=== PATIENT | male | born 1990 | race Two or more races ===

== ENCOUNTER 2017-01-09 11:13 | Emergency (ER) | payer BC ==
[~2017-01-09] VITALS: Ht 172.7 cm; Wt 74.8 kg
[~2017-01-09 11:13] MED LIST: ATIVAN1 MG ORAL; IBUPROFEN600 MG ORAL; IBUPROFEN800 MG ORAL; NKM; NORCO 5-325 TA1 EACH ORAL
[2017-01-09 11:54] VITALS: BP 128/66
[2017-01-09 12:00] VITALS: BP 129/71
[2017-01-09] MEDS ORDERED: LR 1000ml 1,000 ML IV STA (12:41)
[2017-01-09 12:45] LABS: APPEARANCE,URINE CLEAR; KETONES,URINE NEGATIVE (NEGATIVE); LEUKOCYTE ESTERASE ,URINE NEGATIVE (NEGATIVE); NITRITE,URINE NEGATIVE (NEGATIVE); PH,URINE 8 (4.5-8.0); PROTEIN,URINE NEGATIVE (NEGATIVE); UROBILINOGEN,URINE NORMAL MG/DL (0.0-1.0)
[2017-01-09] MEDS ORDERED: Famotidine 20 MG/ 2ML VIAL IVP ONE (12:45)
[2017-01-09 13:00] VITALS: BP 118/78
[2017-01-09 13:16] LABS: BASOPHILS % (AUTO) 1.1 % (0.0-2.0); EOSINOPHILS % (AUTO) 2.6 % (0.0-3.0); LYMPHOCYTES % (AUTO) 26.1 % (20.0-45.0); MEAN CORPUSCULAR HEMOGLOBIN 31.6 PG (27.0-31.0); MEAN CORPUSCULAR HGB CONC 33.5 G/DL (32.0-36.0); MEAN CORPUSCULAR VOLUME 95 FL (80-99); MEAN PLATELET VOLUME 6.8 FL (6.5-10.1); MONOCYTES % (AUTO) 6.4 % (1.0-10.0); NEUTROPHILS % (AUTO) 63.8 % (45.0-75.0); PLATELET COUNT 288 K/UL (150-450); RED CELL DISTRIBUTION WIDTH 12.7 % (11.6-14.8); WHITE BLOOD COUNT 7.7 K/UL (4.8-10.8)
[2017-01-09 13:21] LABS: ALANINE AMINOTRANSFERASE 31 U/L (3-41); ALBUMIN/GLOBULIN RATIO 1.4 (1.0-2.7); ANION GAP 14 (5-15); ASPARTATE AMINO TRANSFERASE 18 U/L (5-40); CARBON DIOXIDE 28 mEQ/L (20-30); CHLORIDE 100 mEQ/L (98-107); GLOMERULAR FILTRATION RATE > 60 mL/min (>60); HEMOLYSIS 12; LIPASE 20 U/L (< 60); POTASSIUM 4.1 mEQ/L (3.4-4.9); SODIUM 142 mEQ/L (135-145); TOTAL PROTEIN 7.4 g/dL (6.6-8.7)
[2017-01-09] MEDS ORDERED: ATIVAN0.5 MG ORAL (14:03)
[2017-01-09] MEDS ORDERED: PEPCID20 MG ORAL (14:03)
[2017-01-09] MEDS ORDERED: ZOFRAN ODT4 MG ORAL (14:03)
[2017-01-09 14:08] VITALS: BP 118/78
[2017-01-09 14:09] VITALS: BP 118/78
--- NOTE | 2017-01-09 15:30 | Diagnostic Imaging Report ---
Indication: Chest pain Technique: One view of the chest Comparison: none Findings: Lungs and pleural spaces are clear. Heart size is normal. Inspiration is less optimal than on the prior study Impression: No acute process
--- NOTE | 2017-01-10 17:06 | Emergency Room Report ---
History of Present Illness General Chief Complaint: Abdominal Pain Source: Patient Present Illness HPI 26YOM with generalized abd pain, nausea without vomiting or diarrhea. Also associated with SOB but no chest pain, fever/chills, cough. 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 Denies history of anxiety. Denies smoking, asthma. Denies other medical problems. Allergies: Coded Allergies: SHELLFISH DERIVED (Unverified Allergy, Unknown, 01/09/17) Shrimp (Verified Allergy, Unknown, 01/09/17) Uncoded Allergies: SHELLFISH (Allergy, Unknown, 01/09/17) Patient History Past Medical History: none Past Surgical History: none Pertinent Family History: none Social History: Denies: alcohol use, drug use, smoking Immunizations: UTD Reviewed Nursing Documentation: PMH: Agreed, PSxH: Agreed Nursing Documentation-PMH Past Medical History: No Stated History Review of Systems All Other Systems: negative except mentioned in HPI Physical Exam Vital Signs Date Time Temp Pulse Resp B/P Pulse Ox O2 Delivery O2 Flow Rate FiO2 01/09/17 11:33 98.2 84 16 128/66 100 Room Air Sp02 EP Interpretation: reviewed, normal General Appearance: normal inspection, well appearing, no apparent distress, alert, GCS 15, non-toxic, other - Very anxious appearing,stressed Head: normocephalic, atraumatic Eyes: bilateral eye EOMI, bilateral eye PERRL ENT: normal ENT inspection, hearing grossly normal, normal voice Neck: normal inspection, full range of motion, supple, no bony tend Respiratory: normal inspection, lungs clear, normal breath sounds, no respiratory distress, no retraction, no wheezing Cardiovascular #1: regular rate, rhythm, no edema Gastrointestinal: normal inspection, normal bowel sounds, non tender, soft, no guarding, no hernia Genitourinary: no CVA tenderness Neurologic: normal inspection, alert, oriented x3, responsive, 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 Likely hemoconcentrated. No leuks. Lipase and bili normal. Patient feels much better. Patient was hydrated with IVF Tolerating PO Exam continues to be non-focal on serial exam of abdomen Likely viral gastroenteritis Low suspicion for acute bacterial or surgical process at this time Rx Pepcid, Zofran Rx ativan for anxiety Advised BRAT diet, fluids and PMD followup Understands to Return to ER for worsening, focal abd pain, fever/chills or inability to tolerate PO Last Vital Signs Date Time Temp Pulse Resp B/P Pulse Ox O2 Delivery O2 Flow Rate FiO2 01/09/17 14:09 98.2 88 18 118/78 100 Room Air Status: improved Disposition: HOME, SELF-CARE Condition: Stable Scripts Ondansetron Odt* (ZOFRAN ODT*) 4 Mg Tab.rapdis 4 MG ORAL BID Y for Nausea & Vomiting for 7 Days, #14 TAB 0 Refills Prov: STEPHANIE NAVARRETE M.D. 01/09/17 Famotidine (PEPCID) 20 Mg Tablet 20 MG ORAL BID for 7 Days, #14 TAB 0 Refills Prov: STEPHANIE NAVARRETE M.D. 01/09/17 Lorazepam* (ATIVAN*) 0.5 Mg Tablet 0.5 MG ORAL BEDTIME for anxiety for 5 Days, #5 TAB Prov: STEPHANIE NAVARRETE M.D. 01/09/17 Patient Instructions: Panic Attacks, [id number]-[id number], Viral Gastroenteritis, Adult Additional Instructions: - Take zofran as needed for nausea - BRAT diet - bananas/rice/apple sauce/toast - progress diet slowly - Drink plenty of liquids - Take pepcid twice daily for 1 week - Return to ER for worsening abdominal pain to one particular area of your abdomen, fever/chills, inability to keep water down Take ativan 0.5mg one tablet at night as needed for severe anxiety Follow up with your primary care doctor in 1 week STEPHANIE NAVARRETE M.D. Jan 10, 2017 17:06
== END 2017-01-09 14:25 | disposition home or self-care (01) ==
LOC: EMR 12:10
DX: K52.9 Noninfective gastroenteritis and colitis, unspecified (principal); F41.9 Anxiety disorder, unspecified; Z91.013 Allergy to seafood
CPT/HCPCS: 36415; 71010; 80053; 81003; 83690; 85025; 96360; 96374; 96375; 99284; J2405; J7120; S0028

== ENCOUNTER → 2017-04-22 | Outpatient (CLI) | payer BC ==
[~2017-04-22] MED LIST changes: +ATIVAN0.5 MG ORAL; +FLORAJEN460 MG PO; +PEPCID20 MG ORAL; +ZOFRAN ODT4 MG ORAL
--- NOTE | 2017-04-22 15:45 | GI Initial Consult Note ---
History of Present Illness General Date patient seen: Apr 22, 2017 Time patient seen: 14:00 Referring physician: Dr. Linda Reason for Consultation: BELCHING NON-STOP Present Illness HPI 27 year old male patient referred by Dr. Dr. Linda for evaluation of non stop belching. Per patient, he has history of GERD, esophagitis, and SIBO s/p Xifaxan tx. The patient has also had a barium swallow study performed in which he states it has come back unremarkable. No history of endoscopic procedures. Presents today with the following symptoms; discomfort in the stomach, difficulty or painful swallowing, bloating/belching, and occasional loose bowel movements. Home Meds Active Scripts Ondansetron Odt* (ZOFRAN ODT*) 4 Mg Tab.rapdis, 4 MG ORAL BID Y for Nausea & Vomiting for 7 Days, #14 TAB 0 Refills Prov:STEPHANIE NAVARRETE M.D. 01/09/17 Famotidine (PEPCID) 20 Mg Tablet, 20 MG ORAL BID for 7 Days, #14 TAB 0 Refills Prov:STEPHANIE NAVARRETE M.D. 01/09/17 Lorazepam* (ATIVAN*) 0.5 Mg Tablet, 0.5 MG ORAL BEDTIME for anxiety for 5 Days, #5 TAB Prov:STEPHANIE NAVARRETE M.D. 01/09/17 Reported Medications Lactobacillus Acidophilus (FLORAJEN) 460 Mg Capsule, 460 MG PO, CAP 04/22/17 No Known Medications* (NKM - No Known Medications*) ., 0 ., 0 Refills 05/30/13 Med list reviewed/reconciled: Yes Allergies: Coded Allergies: SHELLFISH DERIVED (Unverified Allergy, Unknown, 01/09/17) Shrimp (Verified Allergy, Unknown, 01/09/17) Uncoded Allergies: SHELLFISH (Allergy, Unknown, 01/09/17) Patient History History Provided By: Patient, Medical Record PM Narrative Esophagitis GERD SIBO belching Past Surgical History: none Pertinent Family History: none Family History Narrative none Social History: Denies: alcohol use, drug use, other, smoking Review of Systems All Other Systems: negative except mentioned in HPI Physical Exam BP 111/68 T 98.1 86 HR 98.3 T denies any weight loss or changes in dietary habits Sp02 EP Interpretation: reviewed General Appearance: well appearing, no apparent distress, alert Head: normocephalic EENT: PERRL/EOMI, normal ENT inspection, TMs normal Neck: normal inspection, full range of motion, supple, thyroid normal Respiratory: normal inspection, chest non-tender, lungs clear, normal breath sounds, no rhonchi, no respiratory distress Cardiovascular: normal peripheral pulses, normal rate, regular rhythm, regularly irregular Gastrointestinal: normal inspection, non tender, soft, normal bowel sounds, no bruit, non-distended Rectal: deferred Genitourinary: no CVA tenderness Musculoskeletal: normal inspection, back normal Neurologic: normal inspection, alert, oriented x3, responsive Psychiatric: normal inspection, judgement/insight normal, memory normal Skin: normal inspection, no rash, warm/dry, palpation normal, well hydrated Lymphatic: normal inspection, no adenopathy GI: Plan Problems: (1) Belching (2) GERD (gastroesophageal reflux disease) (3) Odynophagia (4) Gastritis Plan patient to be scheduled for EGD pending prior auth, will contact patient regarding appointment - NPO @ [place] day prior procedure explained to patient Rx Dexilant + baclofen. Breath test post GI procedures. Seen with Dr. Kumari. Thank you for referring this patient. Sayra Rodriguez N.P. Apr 22, 2017 15:45
== END | disposition home or self-care (01) ==
LOC: PAN 14:14
DX: R14.2 Eructation (principal); K21.9 Gastro-esophageal reflux disease without esophagitis; R13.10 Dysphagia, unspecified; K29.70 Gastritis, unspecified, without bleeding; Z91.013 Allergy to seafood
CPT/HCPCS: 99201

== ENCOUNTER 2017-06-05 06:15 | Day surgery (SDC) | payer BC ==
[2017-06-05] VITALS (11 sets, daily range): BP systolic 94–120; BP diastolic 58–75
[~2017-06-05] VITALS: Ht 172.7 cm; Wt 71.7 kg
[2017-06-05] MEDS ORDERED: XANAX0.5 MG ORAL (07:27)
[2017-06-05] MEDS ORDERED: ASPIR 8181 MG ORAL (07:27)
--- NOTE | 2017-06-05 08:19 | Pre-Procedure Note/Attestation ---
Pre-Procedure Note/Attestation Complete Prior to Procedure Planned Procedure: not applicable Procedure Narrative: egd Indications for Procedure Pre-Operative Diagnosis: gerd Attestation I attest that I discussed the nature of the procedure; its benefits; risks and complications; and alternatives (and the risks and benefits of such alternatives ), prior to the procedure, with the patient (or the patient's legal apprenticeship representative). I attest that, if there was a reasonable possibility of needing a blood transfusion, the patient (or the patient's legal apprenticeship representative) was given the [facility] standardized written summary, pursuant to the [place] Blood Safety Act ([place] Health and Safety Code # 1645, as amended). I attest that I re-evaluated the patient just prior to the surgery and that there has been no change in the patient's H&P, except as documented below: SAEID TINAJERO Jun 05, 2017 08:19
--- NOTE | 2017-06-05 08:20 | Short Stay Surgery H&P ---
History of Present Illness History of Present Illness Chief Complaint GERD HPI Xavi Sánchez is a 27 year old male who was admitted on for Gerd,Abdominal Pain Patient History Allergies: Coded Allergies: SHELLFISH DERIVED (Verified Allergy, Intermediate, 06/05/17) Nausea and vomiting, rashes Shrimp (Verified Allergy, Intermediate, N/V, rashes, 06/05/17) Uncoded Allergies: SHELLFISH (Allergy, Intermediate, 06/05/17) N/V, rashes PAST MEDICAL HISTORY: (1) anxiety (2) Belching (3) GERD (gastroesophageal reflux disease) (4) Gastritis Past Surgeries: Social History: Medication History Scheduled Aspirin* (Aspir 81*), 81 MG ORAL DAILY, (Reported) Miscellaneous Medications Alprazolam* (Xanax*), 0.5 MG ORAL, (Reported) Lactobacillus Acidophilus (Florajen), 460 MG PO, (Reported) Review of Systems Cardiovascular: Reports: no symptoms Respiratory: Reports: no symptoms Skeletal: Reports: no symptoms Gastrointestinal: Reports: no symptoms Genitourinary: Reports: no symptoms Neurologic: Reports: no symptoms Endocrine: Reports: no symptoms Hematologic: Reports: no symptoms Physical Exam Vital Signs Last Vital Signs Date Time Temp Pulse Resp B/P (MAP) Pulse Ox O2 Delivery O2 Flow Rate FiO2 06/05/17 07:27 97.6 91 16 115/58 99 Room Air Skin: normal HENT: normal Heart: normal Lungs: normal Abdomen: normal Extremities: normal Plan Plan of Care EGD Final Diagnosis: Attestation Are the patient's medical conditions optimized for surgery? Attestation Response: yes SAEID TINAJERO Jun 05, 2017 08:20
[2017-06-05] MEDS ORDERED: Lidocaine 1% MPF 10mg/ml 5ml ONE (08:30)
[2017-06-05] MEDS ORDERED: Propofol 200mg/20ml IV ONE (08:30)
--- NOTE | 2017-06-05 08:47 | Endoscopy Procedure Note ---
Endoscopy Procedure Note Indication for Procedure: abd pain Procedures Performed: EGD Operative Findings/Diagnosis: gastritis Specimen: yes Pt Tolerated Procedure Well: Yes Estimated Blood Loss: none Anesthesiologist: ebenezer Anesthesia: MAC Implant(s) used?: No 50 yrs or older w/o bx or poly: Not Applicable 10yrs. F/U not recommended: Not Applicable SAEID TINAJERO Jun 05, 2017 08:47
[2017-06-05] MEDS ORDERED: DiphenhydrAMINE 50mg/ml Inj IVP PRN (09:00)
[2017-06-05] MEDS ORDERED: Hydromorphone 0.5mg/0.5ml inj IVP PRN (09:00)
[2017-06-05] MEDS ORDERED: Atropine Inj 1mg/10ml Syr IV PRN (09:00)
[2017-06-05] MEDS ORDERED: Midazolam 2mg/2ml Inj IVP PRN (09:00)
--- NOTE | 2017-06-05 11:26 | Anethesia Preoperative Eval ---
Anesthesia Pre-op PMH/ROS General Date of Evaluation: Jun 05, 2017 Time of Evaluation: 08:35 Anesthesiologist: ebenezer ASA Score: ASA 2 Mallampati Score Class I : Soft palate, uvula, fauces, pillars visible Class II: Soft palate, uvula, fauces visible Class III: Soft palate, base of uvula visible Class IV: Only hard plate visible Mallampati Classification: Class II Surgeon: rhonda Diagnosis: gerd Surgical Procedure: egd Social History: smoking - nonsmoker, alcohol use Family History: no anesthesia problems Allergies: Coded Allergies: SHELLFISH DERIVED (Verified Allergy, Intermediate, 06/05/17) Nausea and vomiting, rashes Shrimp (Verified Allergy, Intermediate, N/V, rashes, 06/05/17) Uncoded Allergies: SHELLFISH (Allergy, Intermediate, 06/05/17) N/V, rashes Medications: see eMAR Past Medical History Gastrointestinal/Genitourinary: Reports: GERD Neurologic/Psychiatric: Reports: other - etoh use Anesthesia Pre-op Phys. Exam Physician Exam Last Vital Signs Date Time Temp Pulse Resp B/P (MAP) Pulse Ox O2 Delivery O2 Flow Rate FiO2 06/05/17 10:10 80 16 111/66 99 Room Air 06/05/17 10:03 98.0 06/05/17 08:57 5.0 Constitutional: NAD Neurologic: CN 2-12 intact Cardiovascular: RRR Respiratory: CTA Gastrointestinal: S/NT/ND Airway Exam Mallampati Score: Class II MO: full Neck: supple TMD: 3fb ROM: full Teeth: intact Anesthesia Pre-op A/P Risk Assessment & Plan Assessment: asa2 Plan: mac Status Change Before Surgery: No Pre-Antibiotics Drug: CHUCHO Nava Jun 05, 2017 11:26
--- NOTE | 2017-06-05 11:28 | Immediate Post-Op Evaluation ---
Immediate Post-Op Evalulation Immediate Post-Op Evalulation Procedure: egd Date of Evaluation: Jun 05, 2017 Time of Evaluation: 09:07 IV Fluids: 0.9ns 750ml Blood Products: none Estimated Blood Loss: negligible Blood Pressure Systolic: 129 Blood Pressure Diastolic: 66 Pulse Rate: 69 Respiratory Rate: 18 O2 Sat by Pulse Oximetry: 100 Temperature (Fahrenheit): 98.4 Pain Score (1-10): 0 Nausea: No Vomiting: No Complications none Patient Status: awake, reacts, patent Hydration Status: adequate Drug: CHUCHO Nava Jun 05, 2017 11:28
--- NOTE | 2017-06-05 11:30 | 48 Hour Post Anesthesia Eval ---
Post Anesthesia Evaluation Procedure: egd Date of Evaluation: Jun 05, 2017 Time of Evaluation: 11:28 Blood Pressure Systolic: 111 0: 66 Pulse Rate: 80 Respiratory Rate: 16 Temperature (Fahrenheit): 98.4 O2 Sat by Pulse Oximetry: 100 Airway: patent Nausea: No Vomiting: No Pain Intensity: 0 Hydration Status: adequate Cardiopulmonary Status: stable Mental Status/LOC: patient returned to baseline Post-Anesthesia Complications: none Follow-up care needed: N/A CHUCHO JAIMES Jun 05, 2017 11:30
--- NOTE | 2017-06-05 17:45 | Procedure Note ---
DATE OF PROCEDURE: 06/05/2017 SURGEON: Murali Kumari M.D. PROCEDURE: Upper endoscopy with biopsy. ANESTHESIOLOGIST: Reba Callejas M.D. INSTRUMENT: Olympus adult flexible upper endoscope. INDICATION: Chronic abdominal pain. Reason for Procedure: The procedure, risks, benefits, and possible consequences, including hemorrhage, aspiration, perforation and infection, and alternative treatments, were explained to the patient/legal guardian by Dr. Murali Kumari and the patient/legal guardian understood and accepted these risks. Description Of Procedure: After informed consent was obtained and the patient was adequately sedated, Olympus upper endoscope was advanced from mouth into the second portion of duodenum and retroflexion was performed in the stomach. The patient had evidence of irregular Z-line without any obvious significant esophagitis. In the stomach, there was diffuse gastritis. Random biopsy from antrum and body was obtained to rule out H. pylori infection. The patient tolerated the procedure very well without any complication. SUMMARY OF FINDINGS: 1. Gastritis status post biopsy to rule out H. pylori infection. 2. Irregular Z-line. RECOMMENDATIONS: Followup biopsy results and treat accordingly. Murali Kumari M.D. DR: MAI JOB#: [id number] CC:
== END 2017-06-05 10:15 | disposition home or self-care (01) ==
LOC: GAS 06:15
DX: K29.50 Unspecified chronic gastritis without bleeding (principal); K21.9 Gastro-esophageal reflux disease without esophagitis; F41.9 Anxiety disorder, unspecified; Z91.013 Allergy to seafood; Z79.82 Long term (current) use of aspirin
CPT/HCPCS: 43239; 80300; J2704; 94003; 94150

== ENCOUNTER → 2019-05-23 | Emergency (ER) | payer BC ==
[~2019-05-23] VITALS: Ht 172.7 cm; Wt 72.6 kg
[~2019-05-23] MED LIST changes: +ANTI-ITCH28 G1 TP; +ASPIR 8181 MG ORAL; +BACITRACIN-P28.35 GM TP; +CEPHALEXIN500 MG ORAL; +ERYTHROMYCIN3.5 GM RIGHT EYE; +XANAX0.5 MG ORAL
[2019-05-23 17:52] VITALS: BP 109/66
--- NOTE | 2019-05-23 17:52 | NUR ---
ED Nurse Note: Pt walked in c/o skin rash/abscess x yesterday on his arms and upper body. Pt is A&O x4, V/S stable with no s/s of acute distress noted at this time. Will continue to monitor the pt.
--- NOTE | 2019-05-23 19:02 | Emergency Room Report ---
History of Present Illness General Chief Complaint: Skin Rash/Abscess Source: Patient Present Illness HPI 29-year-old male presents to the ED c/o Itching, swelling, and erythema of several sites on UE's bilaterally and on the back. pt. goes running in the evening with shirt off. no recent travel/hotels. He denies pain. Pt. reports larger area of erythema over the right elbow. Denies pain with ROM. denies recent open wounds or hx of STI. Pt. denies fevers, chills or swollen tender lymph nodes. Denies lesions/rashes elsewhere on the body. Denies new medications or body washes or creams. Denies swelling of the lips, tongue , throat or airway. Denies wheezing, or shortness of breath. Denies recent travel , recent illness or ill contacts. denies blisters, oral lesions, or sloughing of the skin. Pt. also has stye of the right eye. Denies eye pain, discharge, conjunctival redness, loss of vision, floaters, flashing lights, diplopia/ blurry vision, Increased tearing. Allergies: Coded Allergies: SHELLFISH DERIVED (Verified Allergy, Intermediate, 06/05/17) Nausea and vomiting, rashes Shrimp (Verified Allergy, Intermediate, N/V, rashes, 06/05/17) Uncoded Allergies: SHELLFISH (Allergy, Intermediate, 06/05/17) N/V, rashes Patient History Past Medical History: see triage record Past Surgical History: none Pertinent Family History: none Immunizations: UTD Reviewed Nursing Documentation: PMH: Agreed; PSxH: Agreed Nursing Documentation-PMH Past Medical History: No Stated History Hx Cardiac Problems: No Hx Cancer: No Hx Gastrointestinal Problems: Yes Hx Neurological Problems: No Review of Systems All Other Systems: negative except mentioned in HPI Physical Exam Vital Signs Date Time Temp Pulse Resp B/P (MAP) Pulse Ox O2 Delivery O2 Flow Rate FiO2 05/23/19 17:49 98.1 79 19 109/66 (80) 100 Room Air Sp02 EP Interpretation: reviewed, normal General Appearance: no apparent distress, alert, GCS 15, non-toxic Head: normocephalic, atraumatic Eyes: right eye other - small external hordeoleum of the lateral aspect of the right lower lid.; bilateral eye normal inspection, bilateral eye PERRL ENT: hearing grossly normal, no angioedema, normal voice, other - No stridor Neck: full range of motion Respiratory: chest non-tender, lungs clear, normal breath sounds, no wheezing, speaking full sentences Cardiovascular #1: regular rate, rhythm Musculoskeletal: back normal, gait/station normal, normal range of motion, non- tender, other - FROM with elbow without pain Neurologic: alert, oriented x3, responsive, motor strength/tone normal, sensory intact, speech normal, grossly normal Psychiatric: judgement/insight normal Skin: rash - Urticarial papules that are discrete scant on the upper extremities bilaterally, more prominent amount on the back. There is erythema over the right posterior elbow no appreciable warmth no open wounds/scabs. Lymphatic: no adenopathy Medical Decision Making PA Attestation Dr. Barrientos Is my supervising Physician whom patient management has been discussed with. Diagnostic Impression: Primary Impression: Insect bites of multiple sites, infected Additional Impression: Hordeolum externum (stye) Qualified Codes: H00.012 - Hordeolum externum right lower eyelid ER Course 29-year-old male presents to the ED c/o Itching, swelling, and erythema of several sites on UE's bilaterally and on the back. pt. goes running in the evening with shirt off. no recent travel/hotels. He denies pain. Pt. reports larger area of erythema over the right elbow. Denies pain with ROM. denies recent open wounds or hx of STI. Pt. denies fevers, chills or swollen tender lymph nodes. Denies lesions/rashes elsewhere on the body. Denies new medications or body washes or creams. Denies swelling of the lips, tongue , throat or airway. Denies wheezing, or shortness of breath. Denies recent travel , recent illness or ill contacts. denies blisters, oral lesions, or sloughing of the skin. Pt. also has stye of the right eye. Denies eye pain, discharge, conjunctival redness, loss of vision, floaters, flashing lights, diplopia/ blurry vision, Increased tearing. Ddx considered but are not limited to cellulitis, scabies, insect bites, tic bites, spider bites, contact dermatitis, Drug reaction, allergic reaction, fungal infection, lice. Vital signs: are WNL, pt. is afebrile H&PE are most consistent with insect bites of multiple sites with several having concern for secondary cellulitis specifically over the right elbow.- Patient is in no acute distress, nontoxic in appearance, no evidence to suggest acute impending airway compromise or anaphylaxis. ORDERS: none required at this time, the diagnosis is clinical ED INTERVENTIONS: None required at this time. -D/W with patient that he should keep a close eye on the erythema around his elbow and if it is progressing and becoming painful in the joint that he needs to return promptly. -I do not identify an emergent condition at this time. With current presentation , pt. is stable for close outpatient follow up and conservative treatment. D/ w pt. to return promptly to ED with worsening or new symptoms.- Pt. verbalizes' understanding and agreement with proposed treatment plan.proposed treatment plan. DISCHARGE: At this time pt. is stable for d/c to home. Will provide printed patient care instructions, and any necessary prescriptions. Care plan and follow up instructions have been discussed with the patient prior to discharge. Last Vital Signs Date Time Temp Pulse Resp B/P (MAP) Pulse Ox O2 Delivery O2 Flow Rate FiO2 05/23/19 17:52 98.1 68 19 109/66 100 Room Air Disposition: HOME, SELF-CARE Condition: Stable Scripts Erythromycin Base (ERYTHROMYCIN*) 3.5 Gm Oint...g. 1 APPLIC RIGHT EYE TID, #3.5 GM 0 Refills Prov: Jillian Brown 05/23/19 Bacitracin/Polymyxin B Sulfate (BACITRACIN-POLYMYXIN OINTMENT) 28.35 Gm Oint...g. 1 APPLIC TP BID, #28.3 GM Prov: Jillian Brown 05/23/19 Hydrocortisone 2% Cream (ANTI-ITCH 2% CREAM) Y Cr 1 APPLIC TP Q6HR, #28.3 GM Prov: Jillian Brown 05/23/19 Cephalexin* (KEFLEX*) 500 Mg Capsule 500 MG ORAL EVERY 12 HOURS for 7 Days, #14 CAP 0 Refills Prov: Jillian Brown 05/23/19 Patient Instructions: Cellulitis, Plwm-op-Bdyc, Insect Bite, Stye Additional Instructions: Take medications as directed. Follow up with a Primary Care Provider in 3-5 days, even if your symptoms have resolved. --Please review list of primary care clinics, if you do not already have a primary care provider Return sooner to ED if new symptoms occur, or current symptoms become worse. - Please note that this Emergency Department Report was dictated using [employer] dip galvanizer technology software, occasionally this can lead to erroneous entry secondary to interpretation by the dictation equipment. Jillian Brown May 23, 2019 19:02
[2019-05-23 19:14] VITALS: BP 115/70
--- NOTE | 2019-05-23 19:15 | NUR ---
ER DISCHARGE NOTE: Patient is cleared to be discharged per PA, pt is aox4, on room air, with stable vital signs. pt was given dc and prescription instructions, pt was able to verbalize understanding, pt id band removed. pt is able to ambulate with steady gait. pt took all belongings.
== END | disposition home or self-care (01) ==
LOC: EMR 21:42
DX: S40.862A Insect bite (nonvenomous) of left upper arm, initial encounter (principal); S40.861A Insect bite (nonvenomous) of right upper arm, initial encounter; S20.469A Insect bite (nonvenomous) of unspecified back wall of thorax, initial encounter; L08.9 Local infection of the skin and subcutaneous tissue, unspecified; H00.012 Hordeolum externum right lower eyelid; Z91.013 Allergy to seafood; W57.XXXA Bitten or stung by nonvenomous insect and other nonvenomous arthropods, initial encounter; Y93.02 Activity, running; Y92.9 Unspecified place or not applicable
CPT/HCPCS: 99283